=== PATIENT | male | born 1955 | race Two or more races ===

== ENCOUNTER 2022-01-30 09:03 | Day surgery (SDC) | payer MEDICAID ==
[2022-01-28 11:11] LABS: INR 1.37 (0.9-1.15); Partial Thromboplastin Time 31.1 sec (23.6-33.0)
[2022-01-28 11:23] LABS: Albumin 2.7 g/dL (3.4-5.0); Basophils # (auto) 0.1 10 ^3/uL (0-0.2); Calcium 9.1 mg/dL (8.5-10.1); Eosinophils # (auto) 0.2 10 ^3/uL (0-0.8); Hemoglobin 12.7 g/dL (13.5-17.5); Lymphocytes # (auto) 1.2 10 ^3/uL (0.4-5.4); Lymphocytes % (auto) 30.3 % (10.0-50.0); Monocytes # (auto) 0.4 10 ^3/uL (0-1.3); White Blood Cell 3.9 10^3/uL (4.4-10.8)
[2022-01-28 11:25] LABS: Basophils % (auto) 2.2 % (0.0-2.0); Mean Corpuscular Hemoglobin 38.5 pg (28.0-32.0); Mean Corpuscular Hgb Conc. 36.2 g/dL (32.0-36.0); Mean Corpuscular Volume 106.4 fL (80.0-100.0); Monocytes % (auto) 9.2 % (0.0-12.0); Neutrophils % (auto) 52.3 % (37.0-80.0); Nucleated Red Blood Cells % 0.1 %; Red Blood Cells 3.29 10^6/uL (4.5-5.90); Red Cell Distribution Width 14.6 % (11.8-14.3)
[2022-01-28 11:28] LABS: BUN/Creatinine Ratio 9.4; Bilirubin, Total 3.3 mg/dL (0.2-1.0); Total Protein 7.5 g/dL (6.4-8.2)
[~2022-01-30] VITALS: Ht 170.2 cm; Wt 77.1 kg
[~2022-01-30 09:03] MED LIST: CHOLPOW45 XX; FOLATAB PO; KEP500T PO; LACT10SO70 PO; METF-370 PO; OMEP-434 PO; PROP60CA34 PO; RIFA550T PO
[2022-01-30] MEDS ORDERED: LIDOCAINE VISCOUS 2% 15ML UD ONE (09:46)
[2022-01-30] MEDS ORDERED: diphenhdrAMINE HCL 50 MG/1 ML VL ONE (09:46)
[2022-01-30] MEDS ORDERED: MIDAZOLAM HCL 5 MG/ML-1ML VIAL ONE (09:46)
[2022-01-30] MEDS ORDERED: fentaNYL CITRATE 100 MCG/2 ML VL ONE (09:47)
[2022-01-30 10:35] VITALS: BP 126/77
== END 2022-01-30 10:50 | disposition home or self-care (01) ==
LOC: GI 09:03
PROVIDERS: ATTEND Internal Medicine Gastroenterology
DX: K70.30 Alcoholic cirrhosis of liver without ascites (principal); I85.00 Esophageal varices without bleeding; K76.6 Portal hypertension; K31.89 Other diseases of stomach and duodenum; K72.90 Hepatic failure, unspecified without coma; E11.9 Type 2 diabetes mellitus without complications; K21.9 Gastro-esophageal reflux disease without esophagitis; Z20.822 Contact with and (suspected) exposure to COVID-19
CPT/HCPCS: 36415; 43235; 80053; 82962; 85025; 85610; 85730; J1200; J2250; J3010; U0003

== ENCOUNTER 2023-08-04 17:35 | Inpatient (IN) | payer MEDICAID ==
[~2023-08-04] VITALS: Ht 170.2 cm; Wt 79.5 kg
[2023-08-04 19:36] LABS: Basophils # (auto) 0 10 ^3/uL (0-0.2); Basophils % (auto) 0.5 % (0.0-2.0); Eosinophils # (auto) 0.2 10 ^3/uL (0-0.8); Hematocrit 28.3 % (41.0-53.0); Lymphocytes # (auto) 0.4 10 ^3/uL (0.4-5.4); Lymphocytes % (auto) 8.7 % (10.0-50.0); Mean Corpuscular Hemoglobin 36.2 pg (28.0-32.0); Mean Corpuscular Hgb Conc. 35.4 g/dL (32.0-36.0); Mean Corpuscular Volume 102.2 fL (80.0-100.0); Monocytes # (auto) 0.7 10 ^3/uL (0-1.3); Monocytes % (auto) 13.4 % (0.0-12.0); Neutrophils # (auto) 3.8 10 ^3/uL (1.6-8.6); Neutrophils % (auto) 74.4 % (37.0-80.0); Nucleated Red Blood Cells % 0.1 %; Red Blood Cells 2.77 10^6/uL (4.5-5.90); Red Cell Distribution Width 14.9 % (11.8-14.3); White Blood Cell 5.1 10^3/uL (4.4-10.8)
[2023-08-04 19:43] LABS: Alanine Aminotransferase 33 U/L (7-40); Albumin 3.1 g/dL (3.2-4.8); Alkaline Phosphatase 125 U/L (46-116); Anion Gap 10 (5-15); Aspartate Aminotransferase 53 U/L (13-40); BUN/Creatinine Ratio 15.5 (10.0-20.0); Blood Urea Nitrogen 13 mg/dL (9-23); Calcium 9.2 mg/dL (8.7-10.4); Carbon Dioxide 18 mmol/L (20-30); Chloride 109 mmol/L (98-107); Glucose 181 mg/dL (74-106); Sodium 137 mmol/L (136-145)
[2023-08-04 19:44] LABS: Total Protein 6.6 g/dL (5.7-8.2)
[2023-08-04 19:49] LABS: Blood Alcohol 3.1 mg/dL (<10)
[2023-08-04 20:27] LABS: Anisocytosis Slight; Large Platelets FEW; Platelet Estimate Decreased
[2023-08-04] MEDS ORDERED: LORazepam 2MG/ML-1ML VIAL IV ONE (20:45)
[2023-08-04] MEDS ORDERED: ONDANSETRON HCL 4 MG/2 ML VIAL IV PRN ×2 (21:45→23:15)
[2023-08-04] MEDS ORDERED: MORPHINE SULFATE INJ 2 MG/ml SYRG IV PRN ×2 (21:45→23:15)
[2023-08-04] MEDS ORDERED: NITROGLYCERIN 0.4 MG SL TAB SL PRN ×2 (21:45→23:15)
[2023-08-04] MEDS ORDERED: DEXTROSE (50%) 50ML SYRG IV PRN ×2 (21:45→23:15)
[2023-08-04 21:47] VITALS: PULSE 92; RESP 14; O2SAT 97
[2023-08-04 21:58] LABS: INR 1.35 (0.9-1.15); Partial Thromboplastin Time 31.8 SEC (24.5-34.5); Prothrombin Time 13.9 sec (9.3-11.8)
[2023-08-04] MEDS ORDERED: ACCU-CHEK COMFORT CURVE STRIP VI SCH (22:00)
[2023-08-04] MEDS ORDERED: rifAXIMin 550 MG TAB PO SCH (22:00)
[2023-08-04] MEDS ORDERED: PROPRANOLOL HCL 20 MG TAB PO SCH (22:00)
[2023-08-04] MEDS ORDERED: LACTULOSE 20Gm/30ML SOLN PO SCH (22:00)
[2023-08-04] MEDS ORDERED: levETIRAcetam 500 MG TAB PO SCH (22:00)
[2023-08-04] MEDS ORDERED: InsuLIN REG 1unit/0.01ml Soln (100units/ml) SC SCH (22:00)
[2023-08-04] MEDS: ACCU-CHEK COMFORT CURVE STRIP VI SCH (22:15)
[2023-08-04] MEDS ORDERED: LACTULOSE 10g/15ml SOLN 473ML PR SCH (23:15)
[2023-08-04] MEDS: PROPRANOLOL HCL 20 MG TAB PO SCH (23:15)
[2023-08-04] MEDS: InsuLIN REG 1unit/0.01ml Soln (100units/ml) SC SCH (23:40)
[2023-08-04] MEDS: levETIRAcetam 500 MG TAB PO SCH (23:41)
[2023-08-04] MEDS: LACTULOSE 20Gm/30ML SOLN PO SCH (23:41)
[2023-08-04] MEDS: rifAXIMin 550 MG TAB PO SCH (23:41)
[2023-08-05] MEDS ORDERED: LACTULOSE 10g/15ml SOLN 473ML PR SCH
[2023-08-05] MEDS ORDERED: IBUPROFEN 600 MG TAB PO PRN (05:30)
[2023-08-05 06:28] LABS: Amphetamine Screen, Urine Neg (NEGATIVE); Barbiturate Scree,Urine Neg (NEGATIVE); Benzodiazephine Screen, Urine Neg (NEGATIVE); Cannabinoid Screen, Urine Neg (NEGATIVE); Cocaine Screen, Urine Neg (NEGATIVE); Opiate Scree,Urine Neg (NEGATIVE); Phencyclidine Screen, Urine Neg (NEGATIVE)
[2023-08-05 06:42] LABS: Urine Bacteria NONE SEEN /hpf (None Seen); Urine Blood 3+ /uL (Negative); Urine Clarity Clear (Clear); Urine Color Yellow (Yellow); Urine Hyaline Cast FEW /lpf (0 - 2); Urine Protein, UAD TRACE (Negative); Urine Specific Gravity 1.021 (1.001-1.035); Urine WBC 1 /hpf (0 - 3); Urine pH 5.5 (5.0-8.0)
[2023-08-05 07:01] LABS: Alanine Aminotransferase 33 U/L (7-40); Alkaline Phosphatase 107 U/L (46-116); Anion Gap 9 (5-15); Aspartate Aminotransferase 58 U/L (13-40); BUN/Creatinine Ratio 15.8 (10.0-20.0); Blood Urea Nitrogen 12 mg/dL (9-23); Calcium 8.8 mg/dL (8.7-10.4); Carbon Dioxide 19 mmol/L (20-30); Chloride 110 mmol/L (98-107); Glucose 144 mg/dL (74-106); Potassium 3.7 mmol/L (3.5-5.1); Sodium 138 mmol/L (136-145)
[2023-08-05 07:02] LABS: Albumin 2.8 g/dL (3.2-4.8)
[2023-08-05 07:03] LABS: Bilirubin, Total 3.3 mg/dL (0.2-1.0); Total Protein 6.1 g/dL (5.7-8.2)
[2023-08-05] MEDS: ACCU-CHEK COMFORT CURVE STRIP VI SCH ×4 (07:26→22:29)
[2023-08-05 07:30] LABS: Hemoglobin 9.2 g/dL (13.5-17.5); Mean Corpuscular Hemoglobin 35.8 pg (28.0-32.0); Mean Corpuscular Hgb Conc. 35.4 g/dL (32.0-36.0); Red Blood Cells 2.58 10^6/uL (4.5-5.90); Red Cell Distribution Width 14.3 % (11.8-14.3); White Blood Cell 3.5 10^3/uL (4.4-10.8)
[2023-08-05] MEDS: InsuLIN REG 1unit/0.01ml Soln (100units/ml) SC SCH ×4 (07:30→22:58)
[2023-08-05 07:34] LABS: Basophils % (auto) 0.8 % (0.0-2.0); Eosinophils % (auto) 1.2 % (0.0-7.0); Monocytes % (auto) 17.2 % (0.0-12.0); Neutrophils # (auto) 1.9 10 ^3/uL (1.6-8.6); Neutrophils % (auto) 62.8 % (37.0-80.0); Nucleated Red Blood Cells % 0.1 %
[2023-08-05 07:35] LABS: Basophils # (auto) 0 10 ^3/uL (0-0.2); Eosinophils # (auto) 0 10 ^3/uL (0-0.8); Lymphocytes # (auto) 0.5 10 ^3/uL (0.4-5.4); Monocytes # (auto) 0.5 10 ^3/uL (0-1.3)
[2023-08-05 08:00] VITALS: PULSE 97; RESP 18; O2SAT 98
[2023-08-05] MEDS ORDERED: cefTRIAXone 1GM/50ML D5W 50 ML IV SCH (09:00)
[2023-08-05] MEDS: PROPRANOLOL HCL 20 MG TAB PO SCH ×2 (09:40→22:00)
[2023-08-05] MEDS: rifAXIMin 550 MG TAB PO SCH ×2 (09:45→22:58)
[2023-08-05] MEDS: LACTULOSE 20Gm/30ML SOLN PO SCH ×3 (09:45→22:57)
[2023-08-05] MEDS: levETIRAcetam 500 MG TAB PO SCH ×2 (09:46→22:57)
[2023-08-05] MEDS: NEOMYCIN SULFATE 500 MG TAB PO SCH (17:46)
[2023-08-05] MEDS ORDERED: ENOXAPARIN SOD 40 MG/0.4 ML SYRINGE SC ONE (19:00)
[2023-08-05] MEDS ORDERED: metroNIDAZOLE 500MG/100ML 100 ML IV ONE (19:00)
[2023-08-05] MEDS ORDERED: phytonadione 10 MG in SODIUM CHL 0.9% 50 ML IV ONE (19:00)
[2023-08-05] MEDS ORDERED: ACETAMINOPHEN 325 MG TAB PO PRN (20:00)
[2023-08-05] MEDS ORDERED: SODIUM CHLORIDE 0.9% 1,000 ML IV ONE (22:15)
[2023-08-05 23:57] VITALS: PULSE 86; RESP 18; O2SAT 99
[2023-08-06] VITALS (7 sets, daily range): BP systolic 92–108; BP diastolic 53–64; PULSE 66–83; RESP 16–20; TEMP 97.7–98.6; O2SAT 96–99
[2023-08-06 06:21] LABS: Alanine Aminotransferase 32 U/L (7-40); Albumin 2.4 g/dL (3.2-4.8); Alkaline Phosphatase 92 U/L (46-116); Anion Gap 7 (5-15); Aspartate Aminotransferase 58 U/L (13-40); BUN/Creatinine Ratio 21.1 (10.0-20.0); Bilirubin, Total 2.1 mg/dL (0.2-1.0); Blood Urea Nitrogen 15 mg/dL (9-23); Calcium 8.1 mg/dL (8.5-10.1); Carbon Dioxide 19 mmol/L (20-30); Chloride 113 mmol/L (98-107); Cholesterol 132 mg/dL (< 200); Glucose 113 mg/dL (74-106); HDL Cholesterol 38 mg/dL (40-59); LDL Cholesterol 65 mg/dL (< 100); Potassium 3.7 mmol/L (3.5-5.1); Sodium 139 mmol/L (136-145); Total Protein 5.2 g/dL (5.7-8.2); Triglycerides 86 mg/dL (< 150)
[2023-08-06 06:37] LABS: Magnesium 1.5 mg/dL (1.6-2.6)
[2023-08-06 06:49] LABS: INR 1.44 (0.9-1.15); Partial Thromboplastin Time 39.9 SEC (24.5-34.5); Prothrombin Time 14.8 sec (9.3-11.8)
[2023-08-06] MEDS: LACTULOSE 20Gm/30ML SOLN PO SCH ×4 (06:50→21:32)
[2023-08-06] MEDS: NEOMYCIN SULFATE 500 MG TAB PO SCH ×2 (06:51)
[2023-08-06] MEDS: InsuLIN REG 1unit/0.01ml Soln (100units/ml) SC SCH ×4 (06:51→21:38)
[2023-08-06] MEDS: ACCU-CHEK COMFORT CURVE STRIP VI SCH ×4 (06:51→22:00)
[2023-08-06 08:13] LABS: Hematocrit 24.2 % (41.0-53.0); Hemoglobin 8.4 g/dL (13.5-17.5); Mean Corpuscular Hemoglobin 35.3 pg (28.0-32.0); Mean Corpuscular Hgb Conc. 34.9 g/dL (32.0-36.0); Mean Corpuscular Volume 101.3 fL (80.0-100.0); Red Blood Cells 2.38 10^6/uL (4.5-5.90); Red Cell Distribution Width 14.7 % (11.8-14.3); White Blood Cell 3.1 10^3/uL (4.4-10.8)
[2023-08-06 08:15] LABS: Basophils % (auto) 0.7 % (0.0-2.0); Eosinophils % (auto) 2.1 % (0.0-7.0); Lymphocytes # (auto) 0.7 10 ^3/uL (0.4-5.4); Lymphocytes % (auto) 28.5 % (10.0-50.0); Monocytes % (auto) 14.8 % (0.0-12.0); Neutrophils # (auto) 1.4 10 ^3/uL (1.6-8.6); Neutrophils % (auto) 53.9 % (37.0-80.0); Nucleated Red Blood Cells % 0.1 %
[2023-08-06] MEDS ORDERED: SODIUM CHLORIDE 0.9% 1,000 ML IV SCH (08:15)
[2023-08-06 08:16] LABS: Basophils # (auto) 0 10 ^3/uL (0-0.2); Eosinophils # (auto) 0.1 10 ^3/uL (0-0.8); Monocytes # (auto) 0.4 10 ^3/uL (0-1.3)
[2023-08-06] MEDS: MAGNESIUM SULFATE 1GM/100ML 100 ML IV SCH ×2 (08:34→09:35)
[2023-08-06] MEDS: rifAXIMin 550 MG TAB PO SCH ×2 (09:27→21:31)
[2023-08-06] MEDS: cefTRIAXone 1GM/50ML D5W 50 ML IV SCH (09:29)
[2023-08-06] MEDS: PROPRANOLOL HCL 20 MG TAB PO SCH ×2 (09:29→22:00)
[2023-08-06] MEDS: levETIRAcetam 500 MG TAB PO SCH ×2 (09:29→21:31)
[2023-08-06] MEDS ORDERED: ENOXAPARIN SOD 40 MG/0.4 ML SYRINGE SC SCH ×2 (10:00→22:00)
[2023-08-06] MEDS ORDERED: metroNIDAZOLE 500MG/100ML 100 ML IV SCH ×2 (10:00→14:00)
[2023-08-06] MEDS: metroNIDAZOLE 500MG/100ML 100 ML IV SCH (10:10)
[2023-08-06] MEDS ORDERED: SPIRONOLACTONE 25 MG TAB PO ONE (10:15)
[2023-08-06 11:14] LABS: Folate (Folic Acid) 18.07 ng/mL (>5.38)
[2023-08-06] MEDS: FAMOTIDINE (10MG/ML) 2ML VL IV SCH (21:31)
[2023-08-07] VITALS (8 sets, daily range): BP systolic 76–111; BP diastolic 33–62; PULSE 17–74; RESP 16–20; TEMP 97.6–99.3; O2SAT 95–99
[2023-08-07] MEDS: LACTULOSE 20Gm/30ML SOLN PO SCH ×5 (05:59→22:23)
[2023-08-07] MEDS: InsuLIN REG 1unit/0.01ml Soln (100units/ml) SC SCH ×4 (06:02→22:00)
[2023-08-07] MEDS: ACCU-CHEK COMFORT CURVE STRIP VI SCH ×4 (06:29→22:03)
[2023-08-07 07:29] LABS: Alanine Aminotransferase 28 U/L (7-40); Albumin 2.5 g/dL (3.2-4.8); Alkaline Phosphatase 103 U/L (46-116); Anion Gap 8 (5-15); Aspartate Aminotransferase 51 U/L (13-40); Bilirubin, Total 1.7 mg/dL (0.2-1.0); Blood Urea Nitrogen 8 mg/dL (9-23); Calcium 8.1 mg/dL (8.7-10.4); Carbon Dioxide 19 mmol/L (20-30); Chloride 112 mmol/L (98-107); Glucose 110 mg/dL (74-106); Magnesium 1.6 mg/dL (1.6-2.6); Potassium 3.7 mmol/L (3.5-5.1); Sodium 139 mmol/L (136-145); Total Protein 5.5 g/dL (5.7-8.2)
[2023-08-07 08:31] LABS: Eosinophils # (auto) 0.1 10 ^3/uL (0-0.8); Hemoglobin 8.6 g/dL (13.5-17.5); Monocytes # (auto) 0.3 10 ^3/uL (0-1.3); White Blood Cell 2.5 10^3/uL (4.4-10.8)
[2023-08-07 08:34] LABS: Basophils # (auto) 0 10 ^3/uL (0-0.2); Basophils % (auto) 0.9 % (0.0-2.0); Hematocrit 24.5 % (41.0-53.0); Lymphocytes % (auto) 40.6 % (10.0-50.0); Mean Corpuscular Hgb Conc. 35.2 g/dL (32.0-36.0); Mean Corpuscular Volume 102.3 fL (80.0-100.0); Monocytes % (auto) 12.5 % (0.0-12.0); Nucleated Red Blood Cells % 1.2 %; Red Blood Cells 2.39 10^6/uL (4.5-5.90); Red Cell Distribution Width 14.5 % (11.8-14.3)
[2023-08-07] MEDS: cefTRIAXone 1GM/50ML D5W 50 ML IV SCH (09:19)
[2023-08-07] MEDS: FAMOTIDINE (10MG/ML) 2ML VL IV SCH ×2 (09:24→22:23)
[2023-08-07] MEDS: SPIRONOLACTONE 25 MG TAB PO SCH (09:24)
[2023-08-07] MEDS: rifAXIMin 550 MG TAB PO SCH ×2 (09:24→22:24)
[2023-08-07] MEDS: levETIRAcetam 500 MG TAB PO SCH ×2 (09:25→22:24)
[2023-08-07] MEDS: PROPRANOLOL HCL 20 MG TAB PO SCH ×2 (09:27→22:23)
[2023-08-07 09:49] LABS: INR 1.35 (0.9-1.15); Partial Thromboplastin Time 33.7 SEC (24.5-34.5); Prothrombin Time 13.9 sec (9.3-11.8)
[2023-08-07] MEDS: metroNIDAZOLE 500MG/100ML 100 ML IV SCH (11:33)
[2023-08-07 16:14] LABS: Urine Bacteria FEW /hpf (None Seen); Urine Blood 3+ /uL (Negative); Urine Clarity Clear (Clear); Urine Color Colorless (Yellow); Urine Protein, UAD TRACE (Negative); Urine Specific Gravity 1.007 (1.001-1.035); Urine Urobilinogen Normal (Negative); Urine WBC 7 /hpf (0 - 3); Urine pH 6.5 (5.0-8.0)
[2023-08-07] MEDS ORDERED: LACTATED RINGER'S 500 ML IV SCH (20:45)
[2023-08-07] MEDS ORDERED: SODIUM CHLORIDE 0.9% 1,000 ML IV SCH (20:45)
[2023-08-08 05:00] VITALS: BP 95/50; PULSE 64; RESP 20; TEMP 99.1; O2SAT 97
[2023-08-08 05:20] LABS: INR 1.38 (0.9-1.15); Partial Thromboplastin Time 33.1 SEC (24.5-34.5); Prothrombin Time 14.2 sec (9.3-11.8)
[2023-08-08 05:40] LABS: Alanine Aminotransferase 23 U/L (7-40); Albumin 2.4 g/dL (3.2-4.8); Alkaline Phosphatase 99 U/L (46-116); Anion Gap 7 (5-15); Aspartate Aminotransferase 49 U/L (13-40); BUN/Creatinine Ratio 10.8 (10.0-20.0); Bilirubin, Total 1.6 mg/dL (0.2-1.0); Blood Urea Nitrogen 8 mg/dL (9-23); Carbon Dioxide 19 mmol/L (20-30); Chloride 114 mmol/L (98-107); Glucose 89 mg/dL (74-106); Magnesium 1.5 mg/dL (1.6-2.6); Potassium 3.7 mmol/L (3.5-5.1); Sodium 140 mmol/L (136-145); Total Protein 5.4 g/dL (5.7-8.2)
[2023-08-08] MEDS: LACTULOSE 20Gm/30ML SOLN PO SCH ×2 (06:00→13:06)
[2023-08-08 06:12] LABS: Eosinophils # (auto) 0.1 10 ^3/uL (0-0.8); Hemoglobin 8.3 g/dL (13.5-17.5); Monocytes # (auto) 0.2 10 ^3/uL (0-1.3); White Blood Cell 2.4 10^3/uL (4.4-10.8)
[2023-08-08 06:17] LABS: Basophils # (auto) 0 10 ^3/uL (0-0.2); Basophils % (auto) 1.3 % (0.0-2.0); Eosinophils % (auto) 3.9 % (0.0-7.0); Hematocrit 23.6 % (41.0-53.0); Lymphocytes % (auto) 44.1 % (10.0-50.0); Mean Corpuscular Hemoglobin 35.1 pg (28.0-32.0); Mean Corpuscular Hgb Conc. 35.2 g/dL (32.0-36.0); Mean Corpuscular Volume 99.7 fL (80.0-100.0); Monocytes % (auto) 9.7 % (0.0-12.0); Nucleated Red Blood Cells % 0.5 %; Red Blood Cells 2.37 10^6/uL (4.5-5.90); Red Cell Distribution Width 14.2 % (11.8-14.3)
[2023-08-08] MEDS: InsuLIN REG 1unit/0.01ml Soln (100units/ml) SC SCH ×2 (06:48→12:48)
[2023-08-08] MEDS: ACCU-CHEK COMFORT CURVE STRIP VI SCH ×2 (06:53→12:49)
[2023-08-08 08:00] VITALS: PULSE 57
[2023-08-08 09:00] VITALS: BP 117/43; PULSE 67; RESP 18; TEMP 98.4; O2SAT 97
[2023-08-08] MEDS: levETIRAcetam 500 MG TAB PO SCH (09:39)
[2023-08-08] MEDS: SPIRONOLACTONE 25 MG TAB PO SCH (09:40)
[2023-08-08] MEDS: MAGNESIUM SULFATE 1GM/100ML 100 ML IV SCH ×2 (09:42→10:23)
[2023-08-08] MEDS: cefTRIAXone 1GM/50ML D5W 50 ML IV SCH (09:42)
[2023-08-08] MEDS: metroNIDAZOLE 500MG/100ML 100 ML IV SCH (09:42)
[2023-08-08] MEDS: PROPRANOLOL HCL 20 MG TAB PO SCH (10:00)
[2023-08-08] MEDS: rifAXIMin 550 MG TAB PO SCH (10:07)
[2023-08-08] MEDS: FAMOTIDINE (10MG/ML) 2ML VL IV SCH (10:07)
[2023-08-08 13:00] VITALS: BP 123/63; PULSE 65; RESP 16; TEMP 98.3; O2SAT 98
[2023-08-08 14:24] VITALS: BP 107/54; PULSE 65; TEMP 36.9
== END 2023-08-08 18:07 | disposition home or self-care (01) ==
LOC: ER 17:35 → EDBD 17:35 → EDUNIT# 17:35 → TELE 21:35 → ER 21:35 → TELE-WESTW 21:35
PROVIDERS: ADMIT Internal Medicine Pulmonary Disease; ATTEND Student in an Organized Health Care Education/Training Program
DX: K76.82 Hepatic encephalopathy (principal); G93.41 Metabolic encephalopathy; E44.0 Moderate protein-calorie malnutrition; D69.6 Thrombocytopenia, unspecified; E72.20 Disorder of urea cycle metabolism, unspecified; I95.9 Hypotension, unspecified; N30.90 Cystitis, unspecified without hematuria; E11.9 Type 2 diabetes mellitus without complications; D53.9 Nutritional anemia, unspecified; E83.42 Hypomagnesemia; R31.0 Gross hematuria; D50.9 Iron deficiency anemia, unspecified; K74.60 Unspecified cirrhosis of liver; K52.9 Noninfective gastroenteritis and colitis, unspecified; K80.20 Calculus of gallbladder without cholecystitis without obstruction; E78.5 Hyperlipidemia, unspecified; I10 Essential (primary) hypertension; Z68.27 Body mass index [BMI] 27.0-27.9, adult
CPT/HCPCS: 36415; 70450; 70551; 71250; 74176; 80053; 80061; 80307; 80320; 81001; 82140; 82607; 82746; 82962; 83036; 83605; 83690; 83735; 84443; 84484; 85025; 85610; 85730; 87040; 87081; 87086; 93005; 93306; G0378; J0696; J1815; J3430; J3490